=== PATIENT | male | born 1985 | race Caucasian/White ===

== ENCOUNTER 2018-04-15 16:46 | Emergency (ER) | payer OTHER ==
[~2018-04-15] VITALS: Ht 177.8 cm; Wt 81.7 kg
[~2018-04-15 16:46] MED LIST: AMOXICILLIN 50500 M1 PO; APAP/CODEINE ELI5 M1 OR; BACTRIM DS TAB1 EACH PO; IBUPROFEN 800800 MG PO; NOHOMEMEDICATIONS; NORCO 5-325 TA1 EACH PO; PERCOCET 5-3251 EACH PO
[2018-04-15 16:58] LABS: URINE BILIRUBIN NEGATIVE (Negative); URINE BLOOD NEGATIVE (Negative); URINE CLARITY CLEAR; URINE COLOR YELLOW; URINE GLUCOSE-RANDOM* NEGATIVE (Negative); URINE KETONES NEGATIVE (Negative); URINE LEUKOCYTES-REFLEX NEGATIVE (Negative); URINE NITRITE-REFLEX NEGATIVE (Negative); URINE PROTEIN (DIPSTICK) NEGATIVE (Negative); URINE SPECIFIC GRAVITY >= 1.030 (1.005-1.035); URINE UROBILINOGEN 0.2 E.U./dl (0.2-1.0)
[2018-04-15 17:00] VITALS: BP 121/78
[2018-04-15] MEDS ORDERED: DOXYCYCLINE 10100 MG PO (17:40)
[2018-04-15] MEDS ORDERED: ACYCLOVIR 400400 MG PO (17:40)
[2018-04-16 08:46] LABS: HSV PCR SOURCE PENIS
[2018-04-16 13:10] LABS: NEISSERIA GONORRHEA-PCR Negative (Negative)
[2018-04-17 21:11] LABS: HSV 1 DNA Negative (Negative); HSV 2 DNA Negative (Negative)
== END 2018-04-15 18:00 | disposition still patient (30) ==
LOC: ER 16:46
PROVIDERS: Nurse Practitioner Family
DX: B00.9 Herpesviral infection, unspecified (principal); S30.862A Insect bite (nonvenomous) of penis, initial encounter; F17.210 Nicotine dependence, cigarettes, uncomplicated; Z88.6 Allergy status to analgesic agent; W57.XXXA Bitten or stung by nonvenomous insect and other nonvenomous arthropods, initial encounter; Y92.89 Other specified places as the place of occurrence of the external cause; Y93.89 Activity, other specified; Y99.8 Other external cause status

== ENCOUNTER 2018-10-08 14:32 | Emergency (ER) | payer OTHER ==
[~2018-10-08] VITALS: Ht 180.3 cm; Wt 97.5 kg
[~2018-10-08 14:32] MED LIST changes: +ACYCLOVIR 400400 MG PO; +DOXYCYCLINE 10100 MG PO
[2018-10-08] MEDS ORDERED: AMOXICILLIN 50500 M1 PO (15:38)
[2018-10-08 15:49] VITALS: BP 128/79
== END 2018-10-08 15:47 | disposition home or self-care (01) ==
LOC: ER 14:32
DX: H66.91 Otitis media, unspecified, right ear (principal); J06.9 Acute upper respiratory infection, unspecified

== ENCOUNTER 2019-10-19 06:19 | Emergency (ER) | payer OTHER ==
[~2019-10-19] VITALS: Ht 175.3 cm; Wt 95.3 kg
[2019-10-19 07:09] VITALS: BP 157/69
== END 2019-10-19 07:09 | disposition home or self-care (01) ==
LOC: ER 06:19
PROVIDERS: Emergency Medicine
DX: L29.8 Other pruritus (principal); N48.89 Other specified disorders of penis